=== PATIENT | female | born 1945 | race Caucasian/White ===

== ENCOUNTER 2021-07-06 09:32 | Outpatient (CLI) | payer MEDICARE, OTHER | END 2021-07-06 09:33 | disposition home or self-care (01) | LOC: BICMAMMO 09:32 | PROVIDERS: ATTEND Internal Medicine | DX: Z12.31 Encounter for screening mammogram for malignant neoplasm of breast (principal) | CPT/HCPCS: 77063; 77067 ==

== ENCOUNTER 2022-07-28 13:55 | Outpatient (CLI) | payer MEDICARE, OTHER | END 2022-07-28 13:56 | disposition home or self-care (01) | LOC: BICMAMMO 13:55 | PROVIDERS: ATTEND Internal Medicine | DX: Z12.31 Encounter for screening mammogram for malignant neoplasm of breast (principal); M81.0 Age-related osteoporosis without current pathological fracture; M85.851 Other specified disorders of bone density and structure, right thigh; M85.852 Other specified disorders of bone density and structure, left thigh; R92.1 Mammographic calcification found on diagnostic imaging of breast; Z85.828 Personal history of other malignant neoplasm of skin | CPT/HCPCS: 77063; 77067; 77080 ==